=== PATIENT | male | born 1960 | race Caucasian/White ===

== ENCOUNTER 2016-10-16 09:47 | Day surgery (SDC) | payer OTHER ==
[~2016-10-16] VITALS: Ht 165.1 cm; Wt 98.4 kg
[~2016-10-16 09:47] MED LIST: AMLO5TAB4 PO; HYDR12.58 PO
[2016-10-16 11:31] VITALS: Ht 165.1 cm; Wt 98.4 kg
[2016-10-16] MEDS ORDERED: PROPOFOL 40 ML ONE (11:52)
[2016-10-16] MEDS ORDERED: LIDOCAINE 1% (MPF) 5 ML VIAL ONE (11:53)
[2016-10-16 11:57] VITALS: BP 152/92; PULSE 74; RESP 18
[2016-10-16] MEDS ORDERED: GLYCOPYRROLATE 0.4 MG INJ ONE (11:57)
[2016-10-16 13:04] VITALS: BP 174/99; PULSE 78; RESP 18
--- NOTE | 2016-10-17 03:48 | GILP ---
DATE OF PROCEDURE: 10/16/2016 NAME OF PROCEDURES: Colonoscopy and biopsy. SURGEON: Chase Nichols MD PREOPERATIVE DIAGNOSIS: Screening colonoscopy. POSTOPERATIVE DIAGNOSES: 1. Colonoscopy all the way to the cecum. 2. Four small colon polyps were removed using the biopsy forceps. 3. Occasional diverticulosis of the colon. 4. Internal hemorrhoids. INDICATION FOR THE PROCEDURE: Mr. Jonatan Linder is a 56-year-old male patient who had a history of colon polyps. The patient needed screening colonoscopy. The procedure and possible complications are well explained to the patient. He understood and conse nted to the procedure. DESCRIPTION OF PROCEDURE: Under the influence of anesthesia, the colonoscope was carefully introduc ed in the rectum, and under direct vision, it was advanced all the way to the cecum. FINDINGS: The patient had 2 small colon polyps, and they were removed using the biopsy forceps. He had occasional diverticulosis of the colon. He also had internal hemorrhoids. He tolerated the procedure very well, and there was no complication from the procedure. At the end of the procedure, he was awake with stable vital signs, and he was discharged home to the care of hi s family. IMPRESSION: Please see postoperative diagnosis. PLAN: 1. Await histopathology report. 2. Next screening colonoscopy in 5 years. Dictated By: CHASE MOODY/ISADORA Conf#: [id number] DID#: [id number]
== END 2016-10-16 16:40 | disposition home or self-care (01) ==
LOC: GIL 09:47
PROVIDERS: ATTEND Internal Medicine Gastroenterology
DX: Z12.11 Encounter for screening for malignant neoplasm of colon (principal); K57.90 Diverticulosis of intestine, part unspecified, without perforation or abscess without bleeding; I10 Essential (primary) hypertension
CPT/HCPCS: 88305

== ENCOUNTER 2018-01-18 10:24 | Emergency (ER) | END 2018-01-18 14:24 | disposition home or self-care (01) ==

== ENCOUNTER 2018-01-26 05:38 | Day surgery (SDC) | END 2018-01-26 10:02 | disposition home or self-care (01) ==